=== PATIENT | female | born 1950 | race Two or more races ===

== ENCOUNTER 2018-02-24 22:12 | Emergency (ER) | payer MEDICARE, MEDICAID ==
[2018-02-24 23:33] VITALS: RESP 18; TEMP 98.5; BMI 30.9
--- NOTE | 2018-02-24 23:42 | ED PDOC ---
Arrival/HPI - General Chief Complaint: Lower Extremity Problem/Injury Time Seen by Provider: 02/24/18 23:26 Historian: Patient - History of Present Illness Narrative History of Present Illness (Text): 02/24/18 23:39 Kathy Johns is a 67 year old female smoker who presents to the emergency department complaining of right foot pain. Patient states she has been standing all day while at work and developed right ankle pain/swelling and pain to the arch of the right foot while walking. Patient reports pain is worsened with standing and alleviated with elevation of the right foot. Patient notes she took 5 tablets of Ibuprofen with minimal relief. Patient notes some swelling to the left ankle. Patient denies any history of trauma/injury, calf tenderness , weakness/numbness/tingling in the extremity, or any other complaints. Symptom Onset: Gradual Symptom Course: Unchanged Activities at Onset: Light Context: Standing, Home Past Medical History - Provider Review Nursing Documentation Reviewed: Yes - Pulmonary Hx Asthma: Yes - Psychiatric Hx Substance Use: Yes ("dope") - Anesthesia Hx Anesthesia: No Hx Anesthesia Reactions: No Hx Malignant Hyperthermia: No Family/Social History - Physician Review Nursing Documentation Reviewed: Yes Family/Social History: Unknown Family HX Smoking Status: Light Smoker < 10 Cigarettes Daily Hx Alcohol Use: No Hx Substance Use: Yes ("dope") Allergies/Home Meds Allergies/Adverse Reactions: Allergies No Known Allergies Allergy (Verified 02/24/18 23:32) Review of Systems - Physician Review All systems were reviewed & negative as marked: Yes - Review of Systems Constitutional: Normal. absent: Fevers Eyes: Normal ENT: Normal Respiratory: Normal. absent: SOB, Cough Cardiovascular: Normal. absent: Chest Pain Gastrointestinal: Normal. absent: Abdominal Pain, Diarrhea, Nausea, Vomiting Genitourinary Female: Normal. absent: Dysuria, Frequency, Hematuria, Urine Output Changes Musculoskeletal: Other (+right foot pain). absent: Back Pain, Neck Pain Skin: Normal. absent: Rash Neurological: Normal. absent: Headache, Dizziness Endocrine: Normal Hemo/Lymphatic: Normal Psychiatric: Normal Physical Exam Vital Signs Reviewed: Yes Vital Signs Temp Pulse Resp BP Pulse Ox 02/24/18 23:32 98.5 F 54 L 18 144/81 95 Temperature: Afebrile Blood Pressure: Normal Pulse: Regular Respiratory Rate: Normal Appearance: Positive for: Well-Appearing, Non-Toxic, Comfortable Pain Distress: None Mental Status: Positive for: Alert and Oriented X 3 - Systems Exam Head: Present: Atraumatic, Normocephalic Pupils: Present: PERRL Extroacular Muscles: Present: EOMI Conjunctiva: Present: Normal Mouth: Present: Moist Mucous Membranes Neck: Present: Normal Range of Motion. No: Meningeal Signs, MIDLINE TENDERNESS , Paraspinal Tenderness Respiratory/Chest: Present: Clear to Auscultation, Good Air Exchange. No: Respiratory Distress, Accessory Muscle Use Cardiovascular: Present: Regular Rate and Rhythm, Normal S1, S2. No: Murmurs Abdomen: No: Tenderness, Distention, Peritoneal Signs Back: Present: Normal Inspection Upper Extremity: Present: Normal Inspection. No: Cyanosis, Edema Lower Extremity: Present: NORMAL PULSES, Normal ROM, Tenderness (Tenderness to palpation to right medial malleolus, pain with dorsiflexion of right foot), Neurovascularly Intact, Capillary Refill < 2 s. No: Edema, Erythema, Deformity , Temperature Abnormalties Neurological: Present: GCS=15, CN II-XII Intact, Speech Normal Skin: Present: Warm, Dry, Normal Color. No: Rashes Psychiatric: Present: Alert, Oriented x 3, Normal Insight, Normal Concentration Medical Decision Making ED Course and Treatment: 02/24/18 23:3 Impression: 67 year old female complaining of right ankle/foot pain and swelling today. Differential Diagnosis included but are not limited to: --tibia/fibula fracture --ankle sprain Plan: -- XR Right Ankle -- XR Left Ankle -- Reassess and disposition Progress Notes: 02/25/18 01:18 Attempt was made to search for pt in [facility] with no successful search results. 02/25/18 02:15 Labs results reviewed with benign results. Patient does not desire to stay for formal radiologist read. She is given return protocol and will follow up her PCP. Scripts given. She is stable for discharge. - Lab Interpretations Lab Results: 02/25/18 00:25 02/25/18 00:25 Lab Results 02/25/18 00:25: Sodium 139, Potassium 3.8, Chloride 103, Carbon Dioxide 29, Anion Gap 10, BUN 14, Creatinine 0.6 L, Est GFR ( Amer) > 60, Est GFR ( Non-Af Amer) > 60, Random Glucose 112 H, Uric Acid 4.3, Calcium 10.0, Total Bilirubin 0.3, AST 28, ALT 24, Alkaline Phosphatase 98, NT-Pro-B Natriuret Pep 57.8, Total Protein 6.9, Albumin 4.0, Globulin 2.8, Albumin/Globulin Ratio 1.4 02/25/18 00:25: WBC 10.9, RBC 4.06, Hgb 12.8, Hct 38.5, MCV 94.8, MCH 31.5, MCHC 33.2, RDW 12.7, Plt Count 218, MPV 10.6, Gran % 53.2, Lymph % (Auto) 38.5 H , Barton % (Auto) 4.0, Eos % (Auto) 3.8, Baso % (Auto) 0.5, Gran # 5.80, Lymph # ( Auto) 4.2 H, Barton # (Auto) 0.4, Eos # (Auto) 0.4, Baso # (Auto) 0.05 - RAD Interpretation Radiology Orders: 02/24/18 23:40 ANKLE COMPLETE 3 VIEWS BI [RAD] Stat - Medication Orders Current Medication Orders: Discontinued Medications Oxycodone/Acetaminophen (Percocet 5/325 Mg Tab) 1 tab PO STAT STA Stop: 02/25/18 00:08 Last Admin: 02/25/18 00:16 Dose: 1 tab MAR Pain Assessment Document 02/25/18 00:16 AD (Rec: 02/25/18 00:30 AD [id number]) Pain Reassessment Is this a pain reassessment? No Description Intensity of Pain at present 8 - Scribe Statement The provider has reviewed the documentation as recorded by the Jaclyn Tidwell Provider Scribe Attestation: All medical record entries made by the Scribjorge were at my direction and personally dictated by me. I have reviewed the chart and agree that the record accurately reflects my personal performance of the history, physical exam, medical decision making, and the department course for this patient. I have also personally directed, reviewed, and agree with the discharge instructions and disposition. Disposition/Present on Arrival - Present on Arrival Any Indicators Present on Arrival: No History of DVT/PE: No History of Uncontrolled Diabetes: No Urinary Catheter: No History of Decub. Ulcer: No History Surgical Site Infection Following: None - Disposition Have Diagnosis and Disposition been Completed?: Yes Diagnosis: Bilateral ankle pain, Nerve pain Disposition: HOME/ ROUTINE Disposition Time: 02:09 Patient Plan: Discharge Condition: STABLE Discharge Instructions (ExitCare): Neuropathic Pain Prescriptions: oxyCODONE/Acetaminophen [Percocet 5/325 mg Tab] 1 ea PO PRN PRN 3 Days #3 tab PRN Reason: Pain, Severe (8-10) Referrals: Negro Wyatt MD [Staff Provider] - Follow up with primary Forms: Narr[employer] (H[place]er)
[2018-02-25] MEDS ORDERED: Oxycodone/Acetaminophen 5/325 mg Tab PO STA (00:07)
[2018-02-25 00:40] LABS: BASO # 0.05 K/mm3 (0.0-2.0); BASO % 0.5 % (0.0-3.0); EOS # 0.4 (0.0-0.7); EOS % 3.8 % (1.5-5.0); GRAN # 5.8 (1.4-6.5); GRAN % 53.2 % (50.0-68.0); HEMOGLOBIN 12.8 g/dL (12.0-16.0); LYMPH # 4.2 (1.2-3.4); LYMPH % 38.5 % (22.0-35.0); MEAN CELL VOLUME 94.8 fl (80.0-105.0); MEAN CORPUSCULAR HEMOGLOBIN 31.5 pg (25.0-35.0); MEAN CORPUSCULAR HGB CONC 33.2 g/dl (31.0-37.0); MEAN PLATELET VOLUME 10.6 fl (7.0-11.0); MONO # 0.4 (0.1-0.6); RBC 4.06 10^6/uL (3.5-6.1); RED CELL DISTRIBUTION WIDTH 12.7 % (11.5-14.5); WHITE BLOOD COUNT 10.9 10^3/ul (4.5-11.0)
[2018-02-25 00:54] LABS: ALB/GLOB RATIO 1.4 (1.1-1.8); ALT/SGPT 24 U/L (7-56); AST/SGOT 28 U/L (14-36); BLOOD UREA NITROGEN 14 mg/dL (7-21); GFR NON-AFRICAN AMERICAN > 60; URIC ACID 4.3 mg/dL (2.5-6.2)
[2018-02-25 01:02] LABS: B-TYPE NATRIURETIC PEPTIDE 57.8 pg/mL (0-450)
[2018-02-25 02:51] VITALS: BP 141/78; PULSE 61; O2SAT 100
--- NOTE | 2018-02-25 09:37 | RAD ---
Date of service: 02/25/2018 PROCEDURE: Bilateral Ankle Radiographs. HISTORY: swelling COMPARISON: None FINDINGS: BONES: Right Ankle: Normal. No fracture. Left Ankle: Normal. No fracture. JOINTS: Right Ankle: Normal. No osteoarthritis. Ankle mortise maintained. Talar dome intact. Left Ankle: Normal. No osteoarthritis. Ankle mortise maintained. Talar dome intact. SOFT TISSUES: Right Ankle: Normal. Left Ankle: Normal. OTHER FINDINGS: None. IMPRESSION: Normal bilateral ankle radiographs.
== END 2018-02-25 02:15 | disposition home or self-care (01) ==
LOC: ED 22:12
DX: M25.571 Pain in right ankle and joints of right foot (principal); M25.572 Pain in left ankle and joints of left foot; M79.2 Neuralgia and neuritis, unspecified; F17.210 Nicotine dependence, cigarettes, uncomplicated; Y99.0 Civilian activity done for income or pay